=== PATIENT | female | born 2000 | race Caucasian/White ===

== ENCOUNTER 2021-07-14 10:10 | Emergency (ER) | payer OTHER ==
[~2021-07-14] VITALS: Ht 154.9 cm; Wt 44.5 kg
[2021-07-14] MEDS ORDERED: CRYSELLE-28 TA1 EACH PO (10:30)
== END 2021-07-14 13:05 | disposition home or self-care (01) ==
LOC: ER 10:10
DX: N39.0 Urinary tract infection, site not specified (principal)

== ENCOUNTER 2022-04-05 00:21 | Emergency (ER) | payer OTHER ==
[~2022-04-05] VITALS: Ht 154.9 cm; Wt 45.4 kg
[~2022-04-05 00:21] MED LIST: CRYSELLE-28 TA1 EACH PO
== END 2022-04-05 04:08 | disposition left against medical advice (07) ==
LOC: ER 00:21
DX: R30.0 Dysuria (principal); Z88.8 Allergy status to other drugs, medicaments and biological substances